=== PATIENT | male | born 1980 | race Two or more races ===

== ENCOUNTER 2021-11-30 14:09 | Emergency (ER) | payer SELFPAY ==
[~2021-11-30] VITALS: Ht 180.3 cm; Wt 74.8 kg
[2021-11-30] MEDS ORDERED: IBU600T PO (15:23)
[2021-11-30] MEDS ORDERED: ETOMIDATE (2MG/ML) 20ML VIAL IV ONE (17:00)
[2021-11-30] MEDS ORDERED: HYDROcodone-ACET 10/325MG TAB PO ONE (17:30)
[2021-11-30 17:33] VITALS: BP 109/66
== END 2021-11-30 18:26 | disposition home or self-care (01) ==
LOC: ER 14:09
DX: S43.102A Unspecified dislocation of left acromioclavicular joint, initial encounter (principal); W01.0XXA Fall on same level from slipping, tripping and stumbling without subsequent striking against object, initial encounter; Y93.66 Activity, soccer; Y92.9 Unspecified place or not applicable; Y99.9 Unspecified external cause status
CPT/HCPCS: 73020; 73030; 73200